=== PATIENT | male | born 1990 | race Caucasian/White ===

== ENCOUNTER 2020-12-16 05:53 | Emergency (ER) | payer OTHER ==
[~2020-12-16] VITALS: Ht 170.2 cm; Wt 77.1 kg
[2020-12-16 06:05] VITALS: BP 132/92
--- NOTE | 2020-12-16 06:11 | NUR ---
pt came in for left side face pian x 6 days c/o /10 on pain scale.
[2020-12-16] MEDS ORDERED: AMOX-427 PO (06:15)
--- NOTE | 2020-12-16 06:23 | NUR ---
pt discharged rx given to patient. pt left in stable condition. no further questionas asked.
== END 2020-12-16 06:25 | disposition home or self-care (01) ==
LOC: ER 05:53
DX: R51.9 Headache, unspecified (principal); F10.10 Alcohol abuse, uncomplicated; F17.200 Nicotine dependence, unspecified, uncomplicated; Y90.9 Presence of alcohol in blood, level not specified; Z79.899 Other long term (current) drug therapy

== ENCOUNTER 2021-03-31 18:14 | Emergency (ER) | payer OTHER ==
[~2021-03-31] VITALS: Ht 167.6 cm; Wt 68.9 kg
[~2021-03-31 18:14] MED LIST: AMOX-427 PO
[2021-03-31 18:40] VITALS: BP 94/75
--- NOTE | 2021-03-31 18:40 | NUR ---
PT C/O ITCHINESS ON BOTH SOLES OF FOOT X2YRS "I THINK IT'S FUNGUS". PT A/OX4. TOLERATING R/A WELL WITH NO SOB. DENIES PAIN
[2021-03-31] MEDS ORDERED: ECON15CR2 TP (19:17)
--- NOTE | 2021-03-31 19:33 | NUR ---
Patient discharged to home in stable condition. RX Written and verbal after care instructions given. Patient verbalizes understanding of instruction. PT ambulatory with a steady gait
== END 2021-03-31 19:34 | disposition home or self-care (01) ==
LOC: ER 18:40
DX: B35.3 Tinea pedis (principal); L72.0 Epidermal cyst; G62.9 Polyneuropathy, unspecified; F17.200 Nicotine dependence, unspecified, uncomplicated

== ENCOUNTER 2021-11-03 17:53 | Emergency (ER) | payer OTHER ==
[~2021-11-03] VITALS: Ht 172.7 cm; Wt 69.9 kg
[~2021-11-03 17:53] MED LIST changes: +ECON15CR2 TP
[2021-11-03 18:17] VITALS: BP 120/89
[2021-11-03] MEDS ORDERED: TDAP [DIPH/PERTUSSIS/TET] 0.5 ML VIAL IM ONE ×2 (18:30→18:58)
[2021-11-03] MEDS ORDERED: LIDOCAINE HCL/PF 1% 30 ML VIAL TP ONE (18:30)
[2021-11-03] MEDS ORDERED: BACI/NEOM/POLY B OINT PKT 1 UDPKT PACKET TP ONE (18:30)
[2021-11-03] MEDS ORDERED: LIDOCAINE 1% INJ 50 ML MDV IJ ONE (18:34)
--- NOTE | 2021-11-03 19:04 | NUR ---
Patient discharged to home in stable condition. Written and verbal after care instructions given. Patient verbalizes understanding of instruction.
== END 2021-11-03 19:09 | disposition home or self-care (01) ==
LOC: ER 17:56
DX: S61.511A Laceration without foreign body of right wrist, initial encounter (principal); F17.200 Nicotine dependence, unspecified, uncomplicated; W26.8XXA Contact with other sharp object(s), not elsewhere classified, initial encounter; Y93.89 Activity, other specified; Y92.89 Other specified places as the place of occurrence of the external cause; Y99.8 Other external cause status
CPT/HCPCS: 99283; 12002; 90471; 90715; J3490 ×2; A6403

== ENCOUNTER 2021-11-21 15:50 | Emergency (ER) | payer OTHER ==
--- NOTE | 2021-11-21 16:00 | NUR ---
Multiple calls NO response [facility]
--- NOTE | 2021-11-21 16:08 | NUR ---
Multiple calls NO response [facility]
--- NOTE | 2021-11-21 16:14 | NUR ---
Multiple calls NO respons [facility]
== END 2021-11-21 16:16 | disposition home or self-care (01) ==
LOC: ER 16:05
DX: Z53.21 Procedure and treatment not carried out due to patient leaving prior to being seen by health care provider (principal)

== ENCOUNTER 2021-11-23 12:18 | Emergency (ER) | payer OTHER ==
[~2021-11-23] VITALS: Ht 172.7 cm; Wt 68.0 kg
[2021-11-23 12:18] VITALS: BP 116/69
--- NOTE | 2021-11-23 12:18 | NUR ---
BIBS FOR STITCHES REMOVAL ON HIS R WRIST, RECIEVED STITCHES APPROXIMATELY WEEKS AGO.
--- NOTE | 2021-11-23 12:35 | NUR ---
SUTURE REMOVAL DONE
--- NOTE | 2021-11-23 12:50 | NUR ---
Patient discharged to home in stable condition. Written and verbal after care instructions given. Patient verbalizes understanding of instruction.
== END 2021-11-23 12:50 | disposition home or self-care (01) ==
LOC: ER 12:30
DX: S61.511D Laceration without foreign body of right wrist, subsequent encounter (principal); F17.200 Nicotine dependence, unspecified, uncomplicated; X58.XXXD Exposure to other specified factors, subsequent encounter